=== PATIENT | female | born 1955 | race Caucasian/White ===

== ENCOUNTER 2025-10-04 10:15 | Emergency (ER) | payer MEDICARE, OTHER ==
[~2025-10-04] VITALS: Ht 157.5 cm; Wt 40.2 kg
[~2025-10-04 10:15] MED LIST: GABAPENTIN300 MG PO; HYDROCODON-ACE1 EAC8 PO; VENTOLIN HFA18 GM INH; ZITHROMAX250 MG PO
--- OUTSIDE RECORDS SUMMARY | 2025-10-04 10:17 | XMS ---
PreManage Notification: NADIR GIBBS Security Service Coordinator Elderly Facility Events No recent Security Events currently on file CRITERIA MET - [facility] CARE PROVIDERS Vianey Booth Physician Be[employer] [place] PHONE: [phone] Livan has no Care Guidelines for this patient. EDewayne VISIT COUNT (12 MO.) 1 OLAMIDE Elam TOTAL 1 NOTE: Visits indicate total known visits. ED/UCC VISIT TRACKING (12 MO.) 10/04/2025 10:16 OLAMIDE Javier OR TYPE: Emergency COMPLAINT: - VOMITING INPATIENT VISIT TRACKING (12 MO.) No inpatient visits to display in this time frame [email or web address]
[2025-10-04 10:49] LABS: BASOPHILS 0.8 % (0.1-1.2); EOSINOPHILS 1.9 % (0.7-5.8); LYMPHOCYTES 26.9 % (19.3-51.7); MCH 32.9 PG (25.6-32.2); MCHC 33.3 g/dL (32.2-35.5); MCV 98.8 fL (79.4-94.8); MONOCYTES 4.9 % (4.7-12.5); NEUTROPHILS 65.3 % (34.0-71.1); RBC 4.04 M/uL (3.93-5.22)
[2025-10-04] MEDS ORDERED: SODIUM CHLORIDE 0.9% 1,000 ML IV PRN (11:00)
[2025-10-04 11:10] LABS: ALT (SGPT) 23.0 U/L (14-59); AST (SGOT) 23.0 U/L (15-37); GLOMERULAR FILTRATION RATE,EST 76.0 mL/min (>60); PROTEIN, TOTAL 8.1 g/dL (6.4-8.2); TSH, 3RD GENERATION 1.172 uIU/mL (0.358-3.740); UREA NITROGEN 26.0 mg/dL (7-18)
[2025-10-04 11:32] LABS: BLOOD/HGB, URINE SMALL (Negative); KETONE, URINE SMALL (Negative); LEUK ESTERASE, URINE SMALL (negative); NITRITE, URINE POSITIVE (negative)
[2025-10-04 11:39] LABS: BACTERIA, URINE 4+ /hpf (negative); CASTS, URINE NONE SEEN \\lpf; CRYSTALS, URINE NONE SEEN (0-1+); EPITHELIAL CELLS, URINE SQUAMOUS 1+ /lpf (0-1+); REFLEX CULTURE, URINE Yes (No)
[2025-10-04] MEDS ORDERED: CEPHALEXIN500 MG PO (13:34)
[2025-10-04 13:42] VITALS: BP 104/82
[2025-10-04] MEDS ORDERED: CEPHALEXIN MONOHYDRATE 500 MG CAP PO ONE (13:45)
== END 2025-10-04 13:42 | disposition home or self-care (01) ==
LOC: ED 10:15
PROVIDERS: Emergency Medicine
DX: R11.11 Vomiting without nausea (principal); N39.0 Urinary tract infection, site not specified; F17.200 Nicotine dependence, unspecified, uncomplicated; R63.4 Abnormal weight loss
CPT/HCPCS: 36415; 71045; 74177; 80053; 81001; 83735; 84443; 85025; 87077; 87088; 87186; 96360; 99284-25; A9270; J7030; Q9967